=== PATIENT | female | born 1990 | race Caucasian/White ===

== ENCOUNTER 2022-07-12 07:15 | Inpatient (IN) | payer BC, SELFPAY ==
[2022-07-12] VITALS (24 sets, daily range): BP systolic 106–128; BP diastolic 52–72; PULSE 71–100; RESP 16; TEMP 36–36.9; O2SAT 100; BMI 28.9
[2022-07-12 08:17] LABS: Basophil# 0.03 X10^3/uL; Basophil% 0.3 % (0-1); Eosinophil# 0.08 X10^3/uL; Eosinophils% 0.9 % (0-5); Hematocrit 35.5 % (37-47); Hemoglobin 12.3 g/dL (12.0-15.0); Lymphocyte % 23.6 % (19-41); Mean Corp Hgb Conc 34.6 g/dL (32-36); Mean Corpuscular Hgb 32.5 pg (27.0-32.0); Mean Corpuscular Volume 93.7 fL (81-99); Mean Platelet Vol. 9.6 fl (6.2-12.0); Monocyte# 0.61 X10^3/uL; Monocyte% 6.9 % (0-10); NRBC Flagged by Analyzer 0 % (0-5); Neutrophil # 6.03 X10^3/uL (2.7-7.7); Neutrophil % 67.7 % (47-70); Platelet Count 238 K/mm3 (150-450); RBC Distribution Width CV 13.9 % (11.6-14.6); RBC Distribution Width SD 46.8 fl (35.1-43.9); Red Blood Count 3.79 M/mm3 (4.2-5.4); White Blood Count 8.9 K/mm3 (4.4-11.0)
[2022-07-12 09:11] LABS: Syphilis Antibodies Non-reactive
--- NOTE | 2022-07-12 09:17 | HP.PCM.OB_ITS ---
HPI - General General Date of Admission: 07/12/22 HPI Narrative CECILIO THOMSON, is a 31 F who who presents for induction of labor due to suspected LGA at 39w4d. Maternal Data Information RYAN Calculator Estimated Delivery Date Method Current WG Current Estimate 07/15/22 Manual 39w 4d PFSH PFSH Home Medications escitalopram oxalate 5 mg tablet (Lexapro) 5 mg PO DAILY depression 07/12/22 [History Last Taken 07/12/22 06:30] omeprazole 10 mg capsule,delayed release 10 mg PO DAILY heartburn 07/12/22 [History Last Taken 07/12/22 06:30] vit2-iron 29 mg-folic acid 1 mg-omega3 300 mg oral combo pack 1 pkg PO DAILY 07/12/22 [History Last Taken 07/12/22 06:30] Allergy/AdvReac Type Severity Reaction Status Date / Time No Known Allergies Allergy Verified 07/12/22 07:39 Family History no significant family his Surgical History (Updated 07/12/22 @ 08:14 by Lesley Sandoval) History of surgery Social History Smoking Status: Never smoker History Elective abortions Hx Para 2 Spontaneous abortions Hx # Term Pregnancies Ectopic pregnancies Hx # Pregnancies Multiple births # of living children Visit Details OB Flowsheet Initial Weight: Not Recorded Date -?-?-?-?-?-?-?-?-?-?-?-?- EGA Weight BP Urine Prot -?-?-?-?-?-?-?-?-?-?-?-?- Glucose FHR FuHt Pres Dilation -?-?-?-?-?-?-?-?-?-?-?-?- Effaced St Visit Note 07/12/22 -?-?-?-?-?-?-?-?-?-?-?-?- 39w 4d 174 lb 127/66 111/64 128/72 -?-?-?-?-?-?-?-?-?-?-?-?- -?-?-?-?-?-?-?-?-?--?-?-?- NST FHR Rate Baby A Baseline: 145 Variability:: Moderate Accelerations:: 15 x 15 Decelerations:: None FHR Category:: Category I Uterine Activity:: Irregular every 10 minutes, mild ROS Constitutional Constitutional: Reports systems reviewed and no addt'l complaints, except as documented; Denies headache(s) Eyes Eyes: Denies acute decrease in peripheral vision, blurry vision or change in vision ENT HEENT: Reports systems reviewed and no addt'l complaints, except as documented Cardiovascular Cardiovascular: Denies chest pain or dizziness Respiratory/Chest Respiratory/Chest: Denies cough, dyspnea, dyspnea on exertion, shortness of breath at rest or shortness of breath with exertion Gastrointestinal Gastrointestinal: Denies abdominal pain, diarrhea, nausea or vomiting Genitourinary Genitourinary: Denies abdominal discomfort Musculoskeletal Musculoskeletal: Denies limited range of motion Integumentary Integumentary: Reports systems reviewed and no addt'l complaints, except as documented Neurologic Neurologic: Reports systems reviewed and no addt'l complaints, except as documented Psychiatric Psychiatric: Reports systems reviewed and no addt'l complaints, except as documented Endocrine Endocrinology: Reports systems reviewed and no addt'l complaints, except as documented Hematologic/Lymphatic Hematologic/Lymphatic: Reports systems reviewed and no addt'l complaints, except as documented Allergic/Immunologic Allergic/Immunologic: Reports systems reviewed and no addt'l complaints, except as documented Vital Signs Vital Signs Vital Signs: 07/12/22 07:52 07/12/22 07:52 07/12/22 07:51 Temperature 97.5 F L Pulse Rate 83 Blood Pressure 127/66 H BP Systolic 127 BP Diastolic 66 Weight Weight: 174 lb Body Mass Index (BMI) 28.9 Physical Exam Const alert and oriented x3 General Appearance: cooperative Orientation / Consciousness: awake, oriented to person, oriented to place and oriented to time Exam Limitations: no limitations HEENT normocephalic Head and Scalp: normal to inspection, normocephalic and atraumatic Face and Sinus: normal facial exam Eyes General Eye: normal appearance of both eyes Neck full ROM Chest Chest: symmetrical chest wall rise Resp normal respiratory effort and normal air movement Auscultation: clear to auscultation bilaterally Cardio regular rate, regular rhythm, S1 normal heart sound, S2 normal heart sound, no murmurs, no rub, no gallops and no clicks GI normal to inspection, nondistended, normoactive bowel sounds and non-tender appearance of the vagina normal Narrative: 4cm/70%/-2. AROM for clear fluid. Tolerated well. Bladder / Kidney Exam: no CVA tenderness Back/Spine normal ROM Extremity normal to inspection and full ROM Skin no rashes or lesions noted Neuro oriented x3, CN's II-XII intact bilaterally and moves all extremities Sensorium / Orientation: awake, alert and oriented to person Motor Exam: clonus absent Deep Tendon Reflexes: Rt Patellar (L4): 2+ and Lt Patellar (L4): 2+ Labs Labs Labs: Blood Type A POSITIVE Antibody Screen NEGATIVE Hct 35.5 % (37-47) L Hgb 12.3 g/dL (12.0-15.0) Syphilis Total Ab Non-reactive GBS negative A positive RPR negative Rubella Immune HBsAG negative Hep C negative HIV negaitve GC/CT negative Assessment & Plan (1) Elective induction of labor planned: (2) History of third degree perineal laceration: (3) History of rectocele: (4) History of depression: PLAN: Plan Admit to labor and delivery Routine labs GBS negative Requested AROM instead of Pitocin. Is open to pitocin if no contraction rhythm collaborative physician
--- NOTE | 2022-07-12 09:42 | NURSING ---
patient is eligible for intermittent auscultation but her preference is to stay on the monitor and will let me know if this changes.
[2022-07-12] MEDS: Lactated Ringers 1,000 ML 50 ML IV (11:00)
[2022-07-12] MEDS: Oxytocin 15 Units/NS 250ml 15 UNITS/250 ML IV.SOLN 2 UNITS IV (11:10)
--- NOTE | 2022-07-12 18:00 | EX.PCM.OBRPT ---
Assessment & Plan (1) Vaginal delivery: (2) First degree perineal laceration: Maternal Data Information RYAN Calculator Estimated Delivery Date Method Current WG Current Estimate 07/15/22 Manual 39w 4d Vaginal Delivery Maternal Presentation Maternal Presentation: Elective Induction Type of Induction: Pitocin Operative Information Date of Procedure: 07/12/22 Pre-Operative Diagnosis: Induction of Labor Post-Operative Diagnosis: , first degree perineal Surgery / Procedure Performed: Spontaneous Vaginal Delivery Type of Anesthesia: Epidural Estimated Blood Loss: 300 ml Time of Delivery: 17:52 Findings Description of Procedure: Progressed to complete with urge to push. Unmedicated. of viable male infant over first degree perineal laceration. APGARS 8,9 respectively. head delivered with body immediately forthcoming. CANx1, delivered through without compression. Placed on maternal abdomen, strong cry. Mouth and nares suctioned for secretions. Pitocin given IM for active 3rd stage management. Cord doubly clamped and cut by FOB after pulsations ceased, delayed cord clamping. Placenta delivered intact via tabitha, 3 vessel cord intact. Perineum inspected and revealed 1st degree perineal laceration, unrepaired. Fundus firm and hemostasis achieved. EBL 300ml. Mom and baby stable, planning to breastfeed. Family bonding well. notified of delivery. Presentation: Vertex and COURTNEY Amniotic Membrane Rupture Type: Artificial Amniotic Fluid Description: Clear Placental Delivery Description: Spontaneous Placenta Disposition: [facility] Cord Vessel Description: 3 Vessels Cord Entanglement: Around neck x 1, loose Nuchal Cord Compression: Without compression A Gender: Male (1 minute): 8 (5 minute): 9 Delayed Cord Clamping: Yes Post Vaginal Delivery Medications Given After Delivery: - (IM pitocin) Episiotomy Description: None Laceration: Perineal Extension/lac and 1st degree Complication Complications: None
[2022-07-12] MEDS: Oxytocin 15 Units/NS 250ml 15 UNITS/250 ML IV.SOLN 167 UNITS IV (18:35)
[2022-07-12] MEDS: Ibuprofen 600 MG Tablet PO (20:36)
[2022-07-12] MEDS: Benzocaine/Lanolin/Aloe Vera 1 SPRAY EACH TOPICAL (20:36)
[2022-07-13] VITALS (9 sets, daily range): BP systolic 108–122; BP diastolic 54–67; PULSE 62–80; RESP 16–18; TEMP 36.1–36.8; O2SAT 97–98
[2022-07-13 04:39] LABS: Hematocrit 36.8 % (37-47); Hemoglobin 12.4 g/dL (12.0-15.0); Mean Corp Hgb Conc 33.7 g/dL (32-36); Mean Corpuscular Hgb 31.7 pg (27.0-32.0); Mean Corpuscular Volume 94.1 fL (81-99); Mean Platelet Vol. 9.8 fl (6.2-12.0); Platelet Count 261 K/mm3 (150-450); RBC Distribution Width SD 47.3 fl (35.1-43.9); Red Blood Count 3.91 M/mm3 (4.2-5.4); White Blood Count 19.1 K/mm3 (4.4-11.0)
--- NOTE | 2022-07-13 08:47 | PCM.PN.OB ---
Subjective Subjective Denies complaints Objective Data Objective Data Vital Signs: Vital Signs Temp Pulse Resp BP Pulse Ox O2 Del Method 98.2 F 62 16 121/67 H 97 Room Air 07/13/22 08:30 07/13/22 08:30 07/13/22 08:30 07/13/22 08:30 07/13/22 04:21 07/13/22 04:21 Oxygen Delivery Method Room Air Weight: 174 lb Body Mass Index (BMI) 28.9 Intake & Output: Intake and Output for Last 24 Hours 07/11/22 07/12/22 07/13/22 23:59 23:59 23:59 Intake Total 1500.00 / 1500.00 Output Total 3600 / 3600 Balance -2100.00 / -2100.00 Lab / Micro Data Result Diagrams: 07/13/22 04:30 Labs: Laboratory Results - last 24 hr 07/12/22 08:00: Blood Type A POSITIVE, Antibody Screen NEGATIVE 07/12/22 08:00: Syphilis Total Ab Non-reactive 07/13/22 04:30: WBC 19.1 H, RBC 3.91 L, Hgb 12.4, Hct 36.8 L, MCV 94.1, MCH 31.7, MCHC 33.7, RDW Std Deviation 47.3 H, RDW Coeff of Lucio 14.0, Plt Count 261, MPV 9.8 Physical Exam Const alert, oriented x3 and no apparent distress HEENT normocephalic GI soft to palpation, non-tender and non-distended GI Narrative: fundus firm, mid & below umbilicus Extremity normal to inspection and no calf tenderness Assessment & Plan (1) Vaginal delivery: COMMENT: PPD#1 PLAN: D/c home per patient request
--- NOTE | 2022-07-13 08:49 | PCM.DC.SUM ---
Providers Date of Admission: 07/12/22 Primary Care Physician: No Primary Care Phys Reason For Visit: VAG Diagnosis Discharge Diagnosis (1) Vaginal delivery: Status: Acute Code(s): O80 - Encounter for full-term uncomplicated delivery Plan: D/c home per patient request Medications at Discharge Home Medications escitalopram oxalate 5 mg tablet (Lexapro) 5 mg PO DAILY depression 07/12/22 omeprazole 10 mg capsule,delayed release 10 mg PO DAILY heartburn 07/12/22 vit2-iron 29 mg-folic acid 1 mg-omega3 300 mg oral combo pack 1 pkg PO DAILY 07/12/22 acetaminophen 500 mg tablet 1,000 mg PO Q6H PRN PRN Pain 1-10 Or Fever #0 tabs 07/13/22 ibuprofen 600 mg tablet 600 mg PO Q6H PRN PRN Pain Score 1-3 #0 tabs 07/13/22 Physical Exam Const alert, oriented x3 and no apparent distress HEENT normocephalic GI soft to palpation, non-tender and non-distended GI Narrative: fundus firm, mid & below umbilicus Extremity normal to inspection and no calf tenderness Weight / BMI Weight Weight: 174 lb Body Mass Index (BMI) 28.9 ABG / Lab / Microbiology Data Result Diagrams: 07/13/22 04:30 Laboratory: Laboratory Results - last 24 hr 07/12/22 08:00: Blood Type A POSITIVE, Antibody Screen NEGATIVE 07/12/22 08:00: Syphilis Total Ab Non-reactive 07/13/22 04:30: WBC 19.1 H, RBC 3.91 L, Hgb 12.4, Hct 36.8 L, MCV 94.1, MCH 31.7, MCHC 33.7, RDW Std Deviation 47.3 H, RDW Coeff of Lucio 14.0, Plt Count 261, MPV 9.8 D/C Instructions Discharge Diet: No restrictions Discharge Activity: May Shower May resume sexual activity in: 6 weeks Weight Bearing Status: Weight bearing as tolerated Call your doctor if you observe: Fever of 101 or Higher, Coldness, Increased Pain, Change in Color, Inability to urinate, Inability to have a bowel movement, Using more than 1 pad per hour, Shortness of breath, Fainting spells, Chest pain, Increased palpitations (irregular heartbeat) and Uncontrolled pain Please Follow Up With: Laureen Henson CNM When: 2 & 6 weeks Meaningful Use Info Meaningful Use Diagnoses (Choose all that apply): None applicable Discharge Plan Admission Admit Date/Time: 07/12/22 07:15 Primary Reason for Your Visit: Vaginal delivery Attending Provider: Laureen Henson Primary Care Provider: Care Physician,No Primary Discharge Orders/Prescriptions Prescriptions: New acetaminophen 500 mg Tablet 1,000 mg PO Q6H PRN PRN (Reason: Pain 1-10 Or Fever) Qty: 0 0RF ibuprofen 600 mg Tablet 600 mg PO Q6H PRN PRN (Reason: Pain Score 1-3) Qty: 0 0RF Continued escitalopram oxalate [Lexapro] 5 mg Tablet 5 mg PO DAILY omeprazole 10 mg capsule,delayed release(DR/EC) 10 mg PO DAILY Label Comments: TAKE ONE CAPSULE BY MOUTH ONCE DAILY [id number] acid-om3 29 mg iron-1 mg -300 mg Combo Pack 1 pkg PO DAILY Referrals / Follow Up: Care Physician,No Primary [Primary Care Provider] - Disposition Disposition (needs filled in before D/C Order can be placed): Home, Self Care
[2022-07-13] MEDS: Ibuprofen 600 MG Tablet PO (10:08)
== END 2022-07-13 19:19 | disposition home or self-care (01) | DRG 807 ==
PROVIDERS: Obstetrics & Gynecology; Admitting Provider Advanced Practice Midwife; Referring Provider Advanced Practice Midwife; Visit Provider Advanced Practice Midwife
DX: O36.63X0 Maternal care for excessive fetal growth, third trimester, not applicable or unspecified (principal); Z37.0 Single live birth; O69.81X0 Labor and delivery complicated by cord around neck, without compression, not applicable or unspecified; Z87.59 Personal history of other complications of pregnancy, childbirth and the puerperium; O70.0 First degree perineal laceration during delivery; Z3A.39 39 weeks gestation of pregnancy
CPT/HCPCS: 59025; 59050; 85025; 85027; 86780; 86850; 86900; 86901; 99221; J7120; G0378